=== PATIENT | male | born 1965 | race Caucasian/White ===

== ENCOUNTER 2019-05-21 18:04 | Emergency (ER) | payer OTHER ==
[~2019-05-21] VITALS: Ht 170.2 cm; Wt 72.6 kg
[2019-05-21] MEDS ORDERED: AMLODIPINE-OLM1 EAC3 (19:06)
== END 2019-05-22 14:29 | disposition home or self-care (01) ==
LOC: ER 18:04 → EDBD 18:18 → ER 18:18
DX: K22.0 Achalasia of cardia (principal)

== ENCOUNTER 2019-05-31 07:36 | Outpatient (CLI) | payer OTHER ==
[~2019-05-31 07:36] MED LIST: AMLODIPINE-OLM1 EAC3
== END 2019-05-31 07:45 | disposition home or self-care (01) ==
LOC: RX STUDY 07:36
DX: K22.0 Achalasia of cardia (principal)

== ENCOUNTER 2019-06-06 12:23 | Inpatient (IN) | payer OTHER ==
[~2019-06-06] VITALS: Ht 170.2 cm; Wt 68.0 kg
[2019-06-14] MEDS ORDERED: AMLODIPINE-OLM1 EAC2 (08:35)
[2019-06-20] MEDS ORDERED: OXYC1TAB9 PO (16:50)
[2019-06-20] MEDS ORDERED: PHENERGAN25 MG PO (16:51)
[2019-06-20] MEDS ORDERED: POLY119PG PO (16:51)
[2019-06-20] MEDS ORDERED: CARAFATE1 GM/10 ML PO (16:51)
[2019-06-20] MEDS ORDERED: SIMETHICONE80 MG PO (16:51)
== END 2019-06-20 09:00 | disposition home or self-care (01) | DRG 328 ==
LOC: SURG 06-19 05:24 → O/R 06-19 05:24 → SURH 06-19 05:24 → CIR.AMB 06-19 07:00 → O/R 06-19 07:00 → EDSTATUS 06-19 07:30 → SURG 06-19 07:30 → SURH 06-19 12:02 → O/R 06-19 12:02 → CIR.AMB 06-20 08:00 → O/R 06-20 09:00 → SURH 06-20 18:16
PROVIDERS: ADMIT Surgery
PROC: 0WQF4ZZ Repair Abdominal Wall, Percutaneous Endoscopic Approach (ICD-10-PCS; 2019-06-19)
PROC: 0DJ08ZZ Inspection of Upper Intestinal Tract, Via Natural or Artificial Opening Endoscopic (ICD-10-PCS; 2019-06-19)
PROC: 0D844ZZ Division of Esophagogastric Junction, Percutaneous Endoscopic Approach (ICD-10-PCS; principal; 2019-06-19 10:45)
PROC: 0DV44ZZ Restriction of Esophagogastric Junction, Percutaneous Endoscopic Approach (ICD-10-PCS; 2019-06-19 10:45)
DX: K44.9 Diaphragmatic hernia without obstruction or gangrene (principal); K42.9 Umbilical hernia without obstruction or gangrene; K22.0 Achalasia of cardia

== ENCOUNTER 2020-08-09 08:32 | Inpatient (IN) | payer OTHER ==
[~2020-08-09] VITALS: Ht 170.2 cm; Wt 76.2 kg
[~2020-08-09 08:32] MED LIST changes: +AMLODIPINE-OLM1 EAC2; +CARAFATE1 GM/10 ML PO; +OXYC1TAB9 PO; +PHENERGAN25 MG PO; +POLY119PG PO; +SIMETHICONE80 MG PO
[2020-08-09] MEDS ORDERED: AMLODIPINE BESY10 MG PO (08:46)
[2020-08-28] MEDS ORDERED: PROTONIX40 MG PO (12:13)
[2020-08-28] MEDS ORDERED: FOLIC ACID1 MG PO (12:13)
[2020-08-28] MEDS ORDERED: INTESTINEX680 M1 PO (12:14)
[2020-08-28] MEDS ORDERED: B-100 COMPLEX100 MG PO (12:19)
== END 2020-08-28 16:46 | disposition home or self-care (01) | DRG 179 ==
LOC: ER 08:32 → MEDI 22:55 → SEC-K 22:55 → MEDI 08-10 01:31
PROVIDERS: ADMIT Internal Medicine; ATTEND Internal Medicine
PROC: 8E0ZXY6 Isolation (ICD-10-PCS; principal; 2020-08-09)
PROC: CB2YYZZ Tomographic (Tomo) Nuclear Medicine Imaging of Respiratory System using Other Radionuclide (ICD-10-PCS; 2020-08-09)
PROC: B24BZZZ Ultrasonography of Heart with Aorta (ICD-10-PCS; 2020-08-18)
DX: J69.0 Pneumonitis due to inhalation of food and vomit (principal); Z20.822 Contact with and (suspected) exposure to COVID-19; I10 Essential (primary) hypertension

== ENCOUNTER 2020-09-24 10:49 | Outpatient (CLI) | payer OTHER ==
[~2020-09-24 10:49] MED LIST changes: +AMLODIPINE BESY10 MG PO; +B-100 COMPLEX100 MG PO; +FOLIC ACID1 MG PO; +INTESTINEX680 M1 PO; +PROTONIX40 MG PO
== END 2020-09-24 11:02 | disposition home or self-care (01) ==
LOC: RAD 10:49
PROVIDERS: ATTEND Internal Medicine Pulmonary Disease
DX: J15.9 Unspecified bacterial pneumonia (principal)

== ENCOUNTER 2021-02-18 08:47 | Outpatient (CLI) | payer OTHER | END 2021-02-18 09:02 | disposition home or self-care (01) | LOC: RAD 08:47 | PROVIDERS: ATTEND Internal Medicine Pulmonary Disease | DX: J15.8 Pneumonia due to other specified bacteria (principal); R07.89 Other chest pain ==

== ENCOUNTER 2021-11-18 07:37 | Outpatient (CLI) | payer OTHER | END 2021-11-18 07:46 | disposition home or self-care (01) | LOC: RX STUDY 07:37 | PROVIDERS: ATTEND Internal Medicine | DX: R13.12 Dysphagia, oropharyngeal phase (principal); K22.0 Achalasia of cardia ==

== ENCOUNTER 2022-01-09 09:28 | Emergency (ER) | payer OTHER ==
[~2022-01-09] VITALS: Ht 170.2 cm; Wt 76.2 kg
== END 2022-01-09 13:44 | disposition home or self-care (01) ==
LOC: ER 09:28
DX: J34.0 Abscess, furuncle and carbuncle of nose (principal); I10 Essential (primary) hypertension

== ENCOUNTER 2022-03-26 20:26 | Emergency (ER) | payer OTHER ==
[~2022-03-26] VITALS: Ht 170.2 cm; Wt 77.1 kg
== END 2022-03-26 21:13 | disposition home or self-care (01) ==
LOC: ER 20:26
DX: L03.011 Cellulitis of right finger (principal); I10 Essential (primary) hypertension

== ENCOUNTER 2022-08-11 12:17 | Outpatient (CLI) | payer OTHER | END 2022-08-11 13:36 | disposition home or self-care (01) | LOC: RAD 12:17 | PROVIDERS: ATTEND Internal Medicine | DX: M15.0 Primary generalized (osteo)arthritis (principal); M05.79 Rheumatoid arthritis with rheumatoid factor of multiple sites without organ or systems involvement; M54.51 Vertebrogenic low back pain ==

== ENCOUNTER 2023-10-05 07:50 | Outpatient (CLI) | payer OTHER | END 2023-10-05 08:07 | disposition home or self-care (01) | LOC: RAD 07:50 | PROVIDERS: ATTEND Internal Medicine | DX: M53.3 Sacrococcygeal disorders, not elsewhere classified (principal) ==

== ENCOUNTER 2024-01-21 12:10 | Emergency (ER) | payer OTHER ==
[~2024-01-21] VITALS: Ht 172.7 cm; Wt 79.4 kg
[2024-01-21] MEDS ORDERED: CEFAZOLIN SODIUM 1,000 MG VIAL IV STA (14:12)
[2024-01-21] MEDS ORDERED: TETANUS & DIPHTHERIA TOX,ADULT 0.5 ML VIAL IM SCH (14:13)
== END 2024-01-21 14:19 | disposition home or self-care (01) ==
LOC: ER 12:12
DX: S61.012A Laceration without foreign body of left thumb without damage to nail, initial encounter (principal); W26.8XXA Contact with other sharp object(s), not elsewhere classified, initial encounter; Y92.89 Other specified places as the place of occurrence of the external cause; Y99.9 Unspecified external cause status

== ENCOUNTER 2024-02-05 13:09 | Emergency (ER) | payer OTHER ==
[~2024-02-05] VITALS: Ht 170.2 cm; Wt 76.2 kg
== END 2024-02-05 15:22 | disposition home or self-care (01) ==
LOC: ER 13:11
DX: Z48.02 Encounter for removal of sutures (principal)